=== PATIENT | male | born 1965 | race Asian ===

== ENCOUNTER 2021-06-20 23:24 | Inpatient (IN) | payer OTHER ==
[~2021-06-20] VITALS: Ht 193 cm; Wt 118.5 kg
[2021-06-20 23:40] VITALS: BP 145/84; TEMP 98.8
[2021-06-21 00:58] LABS: PLATELET COUNT 245 K/uL (142-355)
[2021-06-21 01:13] LABS: POTASSIUM 4.2 mmol/L (3.6-5.2); SODIUM 133 mmol/L (136-145)
[2021-06-21 01:30] VITALS: BP 120/83
--- NOTE | 2021-06-21 03:36 | NUR ---
0300 Received pt via wheelchair from ER admitted to room 1113. Pt requesting to take a shower. Towels and hand clothes provided along with toiletries. IV SL site wrapped. Pt with no c/o pain/discomfort at this time. Oriented to room and call system.
[2021-06-21 06:26] VITALS: BP 117/71; TEMP 98.8; Ht 193 cm; Wt 118.5 kg
[2021-06-21 06:34] LABS: POTASSIUM 4.3 mmol/L (3.6-5.2)
--- NOTE | 2021-06-21 06:55 | NUR ---
Pt is resting in bed with eyes closed at this time. States "I'm hungry. I haven't eaten since yesterday morning" earlier. Potatoe chips and soda given per request. PO fluids encouraged. IV 20g infusing NS to left hand at 200 cc/hr without difficulty. No s/s of distress at this time. No c/o voiced. Call light in easy reach.
[2021-06-21 08:04] VITALS: BP 122/70; TEMP 98.1
[2021-06-21 12:10] VITALS: BP 136/66; TEMP 97.7
[2021-06-21 15:50] VITALS: BP 132/79; TEMP 98
[2021-06-21 20:00] VITALS: BP 137/77; TEMP 97.8
[2021-06-22] VITALS: BP 116/62; TEMP 98.3
--- NOTE | 2021-06-22 03:44 | NUR ---
PT HAS BEEN AWAKE WATCHING TV SINCE 19:00PM. PT STAES HE IS FEELING BETTER SINCE ADMISSION AND RECEIVING IVFS ORDERED. ROUNDING EVERY 2 HOURS AND PRN. DENIES ANY PAIN OR DISCOMFORT.
[2021-06-22 04:00] VITALS: BP 110/59; TEMP 98.4
[2021-06-22 06:05] LABS: POTASSIUM 4.3 mmol/L (3.6-5.2)
[2021-06-22 08:00] VITALS: BP 118/68; TEMP 98.1
[2021-06-22 12:00] VITALS: BP 105/58; TEMP 97.7
[2021-06-22 16:00] VITALS: BP 116/55; TEMP 97.7
[2021-06-22 20:00] VITALS: BP 103/51; TEMP 98.4
[2021-06-23] VITALS (7 sets, daily range): BP systolic 114–139; BP diastolic 57–73; TEMP 97.7–98.6
[2021-06-23 05:55] LABS: POTASSIUM 3.9 mmol/L (3.6-5.2)
[2021-06-24 03:58] VITALS: BP 124/68; TEMP 98.1
[2021-06-24 08:00] VITALS: BP 141/76; TEMP 98
--- NOTE | 2021-06-24 09:28 | NUR ---
RECEIVED [facility] CPK OF [phone]. NOTIFIED.
[2021-06-24 09:39] LABS: POTASSIUM 5.1 mmol/L (3.6-5.2)
--- NOTE | 2021-06-24 13:00 | NUR ---
DC INSTRUCTIONS GIVEN AND EXPLAINED TO PT, PT VERBALZIED UNDERSTANDING, IV REMOVED WITH CATHETER INTACT
--- NOTE | 2021-06-24 13:10 | NUR ---
PT DC VIA AMBULATION TO PRIVATE VEHICLE, BELONGINGS IN HAND, NAD NOTED
--- NOTE | 2021-06-24 15:39 | NUR ---
i met with pt to assess dc plan needs on 06/21 and pt stated that he lives at home with his parents, has just started a new job at [employer], thats why merlynoes not yet have insurance. he will fu with Dr. Baez at [facility] on 06/25/21 @ 9am.
== END 2021-06-24 12:45 | disposition home or self-care (01) | DRG 558 ==
LOC: ED 23:24 → MED/SURG 06-21 02:00
PROVIDERS: Dentist Oral and Maxillofacial Surgery; ADMIT Emergency Medicine; ATTEND Internal Medicine Endocrinology, Diabetes & Metabolism
DX: M62.82 Rhabdomyolysis (principal); N17.8 Other acute kidney failure; B20 Human immunodeficiency virus [HIV] disease; R73.9 Hyperglycemia, unspecified
CPT/HCPCS: 36415; 80048; 80053; 81000; 82550; 82553; 82570; 84300; 84484; 85027; 87635; 93005; 96360; 96372; 99284; J1885; U0003

== ENCOUNTER 2022-07-01 23:05 | Emergency (ER) | payer BC ==
[~2022-07-01] VITALS: Ht 193 cm; Wt 105.7 kg
[2022-07-02 01:40] VITALS: BP 128/76; TEMP 98.7
== END 2022-07-02 01:45 | disposition home or self-care (01) ==
LOC: ED 23:05
DX: S93.491A Sprain of other ligament of right ankle, initial encounter (principal); X58.XXXA Exposure to other specified factors, initial encounter; Y92.89 Other specified places as the place of occurrence of the external cause
CPT/HCPCS: 96372; 99283; J1885